=== PATIENT | female | born 1990 | race Caucasian/White ===

== ENCOUNTER 2017-02-15 09:16 | Emergency (ER) | payer MEDICAID ==
[~2017-02-15] VITALS: Ht 164.5 cm; Wt 59.9 kg
[~2017-02-15 09:16] MED LIST: AMOXICILLIN 50500 MG PO; DARVOCET-N 1001 EACH PO; FLINTSTONES W/I1 CTB PO; FLUCONAZOLE 10100 MG PO; KEFLEX 500MG.500 MG PO; PHENERGAN 25MG.25 M1 PO
--- NOTE | 2017-02-15 09:38 | [facility]gent [facility] Report ---
History of Present Issue Date/Time Seen by Provider 02/15/17 0937 Visit Reason Pt arrived:Walked Presenting Problem:left ear ache x 1 day Location if Accident: Onset of symptoms date/time:/ or onset unknown for:MEDICAL HX UNKNOWN Have you (or family members/close friends) recently traveled outside the [place]? N If Yes, where/when: Have you had exposure to infectious disease within the past month? TB? Other? Specify: c/o left ear pain and sore throat. Radiates into left side of neck. Started 2-3 days ago w/ rhinorrhea, sneezing. Mild and intermittent but ear becoming more constant. described as constant. No ear drainage. Denies change in hearing. No treatment prior to arrival. Worse when first wakes up and before going to sleep. Source patient Exam Limitations no limitations ALLERGIES Coded Allergies: Sulfa (Sulfonamide Antibiotics) (10/12/16) History Medical History General CAD? No Angina: No OK: No Hypertension? No Hyperlipidemia? No CHF? No DVT? No PE? No COPD? No Asthma? No Anemia? No GERD? No Gastric ulcers? No GI Bleed? No Hernia? No Thyroid Problems? No Hypothyroidism? No CVA? No Seizures? No Diabetes? No Insulin Dependent: No Insulin Pump: No Home FSBS? No Renal Insuffiency? No UTI? Yes Stones? Yes BPH? No GB Disease: No Nephritic Syndrome? No Asplenia? No Hepatitis? No Sickle Cell Disease? No Arthritis? No Migraines? No Cataracts? No Glaucoma? No MRSA? No HIV? No TB? No Anxiety? No Depression? No Cancer? No More? No Immunization HX DT/Tetanus Unknown Flu THISFLUSEA Pneumonia REFUSES Surgical Hx Previous Surgery?Y Hernia KIDNEY STENT Social History Smoking Hx Smoker: Never Smoker Tobacco: No Alcohol Alcohol: No Review of Systems All Other Systems Reviewed and Negative Constitutional denies chills, denies fever, denies malaise Eyes denies drainage ENT see HPI. denies: throat swelling. Respiratory denies cough Gastrointestinal denies no symptoms reported Musculoskeletal denies other (no aches) Skin denies rash Psychiatric/Neurological denies headache Physical Exam Vital Signs Vital Signs Date Time Temp Pulse Resp B/P Pulse O2 O2 Flow FiO2 Ox Delivery Rate 02/15 0932 97.9 82 18 100/68 98 General Appearance normal appearance, no apparent distress Eye Exam - bilateral eye normal exam Ear, Nose, Throat normal ENT exam except clear fluid bubbles behind left TM. No bulging. Mild tenderness left neck consistent w/ eustachian tube Neck supple, full range of motion Respiratory Status No: respiratory distress, productive cough, non productive cough. Lung Sounds anterior: lungs clear. posterior: lungs clear. bilateral: lungs clear. Cardiovascular regular rate/rhythm, no peripheral edema, no murmur Neurologic alert, oriented x 3 Mental status normal mood/affect Skin normal color, warm/dry Lymphatic no adenopathy Medical Decision Making LABS/Meds/Orders Pt receiving controlled substance in ED? No Departure Departure Time of Disposition 1001 Disposition DC Home or Self Care(routine) Clinical Impression Primary Impression: Dysfunction of left eustachian tube Condition STABLE Referrals NO REFERRAL Follow up with primary care if no improvement in 3-4 days but also for new or worsening symptoms. If you can not get in to your primary care, return to ER/UTC for new or worsening symptoms. Patient Instructions DI for Eustachian Tube Dysfunction-Adult Additional Instructions Sleep elevated warm salt water gargles Start claritin 10 mg daily Start flonase 2 sprays each nostril daily Start sudafed 12 or 24 hours over the counter Ibuprofen as needed for pain Seek treatment if fever develops Discharge Counseling Counseled pt/family regarding diagnosis, medications/RX, home care, follow up needs Prescriptions Current Visit Scripts Fluticasone Propionate (Flonase 50 Mcg Nasal [place]) 2 SPRAY NA DAILY #1 BOT at 1007
[2017-02-15] MEDS ORDERED: FLONASE 50 MCG16 GM (10:03)
[2017-02-15 10:04] VITALS: BP 100/68
== END 2017-02-15 10:05 | disposition home or self-care (01) ==
LOC: UTC 09:16
DX: H69.92 Unspecified Eustachian tube disorder, left ear (principal)